=== PATIENT | female | born 1945 ===

== ENCOUNTER 2024-05-16 13:22 | Outpatient (REF) | payer MEDICARE, SELFPAY ==
[2024-05-16 13:29] LABS: MANUAL DIFF FLAG NO
[2024-05-16 13:34] LABS: Basophils Absolute Auto 0.1 X10*3/uL (0.0-0.2); Basophils Percent Auto 0.9 % (0-2); Eosinophils Absolute Auto 0.1 X10*3/uL (0.0-0.4); Eosinophils Percent Auto 1.2 % (0-4); Hematocrit 27.4 % (37.0-47.0); Hemoglobin 8.1 g/dl (12.0-16.0); Imm Gran Abs Auto 0.13 X10*3/uL (0.00-0.03); Imm Gran Pct Auto 1.9 % (0.0-0.4); Lymphocytes Absolute Auto 0.6 X10*3/uL (1.2-4.9); Lymphocytes Percent Auto 8.7 % (20-40); Mean Corpuscular HGB Conc 29.6 g/dl (31.0-35.0); Mean Corpuscular Hemoglobin 24.5 pg (27.0-33.0); Mean Corpuscular Volume 82.8 fL (80.0-98.0); Mean Platelet Volume 9.3 fL (9.4-12.3); Monocytes Percent Auto 14.9 % (2-11); Neutrophils Percent Auto 72.4 % (45-73); Platelet Count 452 X10*3/uL (160-400); Red Blood Count 3.31 X10*6/uL (4.20-5.50); Red Cell Distribution Width 18.5 % (11.0-16.0); White Blood Count 6.9 X10*3/uL (4.8-10.8)
== END 2024-05-16 13:23 | disposition home or self-care (01) ==
LOC: HO.HVNA 13:22
PROVIDERS: Visit Provider Physician Assistant Medical
DX: D64.9 Anemia, unspecified (principal)
CPT/HCPCS: 36415; 85025